=== PATIENT | male | born 2000 | race Caucasian/White ===

== ENCOUNTER 2018-04-07 14:10 | Emergency (ER) | payer OTHER ==
[~2018-04-07] VITALS: Ht 180.3 cm; Wt 114.0 kg
[2018-04-07 14:16] VITALS: TEMP 36.7; Ht 180.3 cm; Wt 114.0 kg
--- NOTE | 2018-04-07 14:54 | EMERGENCY ROOM VISIT NOTE ---
History Report prepared by Tho: Rafal Reza Under the Supervision of: Dr. Zain Augustine M.D. First contact with patient: 14:24 Chief Complaint: NEURO SYMPTOMS Stated Complaint: BLURRY VISON, LOSS OF FEELING IN LT ARM/HEARING RT Nursing Triage Summary: Right eye vision is blurry, having decreased hearing on the right, headache behind the right eye. Symptoms have been going on for about a month and a half. History of Present Illness The patient is a 17 year old white male with a past medical history of puncture wound to his left elbow who presents to the ED with a cc of intermittent blurry vision in the right eye beginning 1.5 months ago. Pt states he constant has a headache behind his right eye, and its intensity affects how blurry his vision is. He reports he is also experiencing left arm and hand numbness. Pt notes he is right handed. He states he tried taking 800mg of ibuprofen for pain, but it did not work. Pt reports he has not had trouble with his previous elbow wound, and it happened 9 years ago. Negative history of chronic medical problems, taking medication, fevers, chills, tick bites, over use of his left arm, wearing contacts or glasses, and seeing an eye doctor. He notes he currently smokes. Source of History: patient Onset: 1.5 months ago Position: eye (right) Quality: other (blurry vision) Timing: intermittent Modifying Factors (Worsening): other (intensity of his headache) Associated Symptoms: + headache, + numbness (left arm and hand), No fevers, No chills Review of Systems See HPI for pertinent positives and negatives. A total of ten systems were reviewed and were otherwise negative. Past Medical & Surgical Medical Problems: (1) Puncture wound of left elbow Family History Patient reports no known family medical history. Social History Smoking Status: Current Every Day Smoker Marital Status: single Housing Status: lives with family Occupation Status: employed Current/Historical Medications No Active Prescriptions or Reported Meds Allergies Coded Allergies: No Known Allergies (Unverified , 04/07/18) Physical Exam Vital Signs Date Time Temp Pulse Resp B/P (MAP) Pulse Ox O2 Delivery O2 Flow Rate FiO2 04/07/18 16:27 79 16 129/69 96 Room Air 04/07/18 15:08 78 16 145/80 97 Room Air 04/07/18 14:16 36.7 98 16 141/87 97 Room Air Physical Exam GENERAL: Awake, alert, well-appearing, NAD HENT: Normocephalic, atraumatic. EOMI. Mild pain with EOM behind the right eye. No proptosis. No double vision. 20/20 vision of the left eye. 20/40 vision of the right eye. EYES: Normal conjunctiva. Sclera non-icteric. PERRL. No anisocoria. NECK: Supple. No nuchal rigidity. FROM. RESPIRATORY: CTAB, no rhonchi, wheezing, crackles CARDIAC: RRR, no MRG ABDOMEN: Soft, NTND, BS+ MSK: No chest wall TTP, no LE edema NEURO: CN 2-12 intact, 5/5 upper and lower extremity strength, no dysmetria, no drift, good finger to nose. Finger count grossly normal. Decreased sensation to the left upper extremity distal to elbow. Decreased pain sensation. Pressure sensation intact. SKIN: No rash or jaundice noted. Medical Decision & Procedures ER Provider Diagnostic Interpretation: Radiology results as stated below per my review and radiologist interpretation: CT SCAN OF THE BRAIN WITHOUT IV CONTRAST CLINICAL HISTORY: Headache. COMPARISON STUDY: No priors. TECHNIQUE: Unenhanced axial CT scan of the brain is performed from the vertex to the skull base. A dose lowering technique was utilized adhering to the principles of ALARA. CT DOSE: 614.27 mGy.cm FINDINGS: Brain parenchyma: The brain parenchyma is normal in appearance. There is no hemorrhage, mass effect, or evidence of acute territorial ischemia by CT criteria. Li-white matter is preserved. No extra-axial fluid collection is seen. Ventricles, sulci, cisterns: Normal in configuration. Intracranial vasculature: The visualized intracranial vasculature at the skull base is normal in appearance. Calvarium: Unremarkable. Sinuses and mastoids: The visualized paranasal sinuses are clear. The mastoid air cells are well pneumatized. Orbits: The bony orbits are grossly intact. IMPRESSION: No acute intracranial abnormality. Electronically signed by: Camilo Guerrero M.D. 04/07/2018 5:03 PM Dictated Date/Time: 04/07/2018 5:01 PM Laboratory Results 04/07/18 14:35 Red Blood Count 5.31, Mean Corpuscular Volume 84.0, Mean Corpuscular Hemoglobin 30.3, Mean Corpuscular Hemoglobin Concent 36.1, Mean Platelet Volume 11.5, Neutrophils (%) (Auto) 49.9, Lymphocytes (%) (Auto) 29.6, Monocytes (%) (Auto) 12.4, Eosinophils (%) (Auto) 7.1, Basophils (%) (Auto) 0.8, Neutrophils # (Auto ) 3.17, Lymphocytes # (Auto) 1.88, Monocytes # (Auto) 0.79, Eosinophils # (Auto ) 0.45, Basophils # (Auto) 0.05 Test 04/07/18 14:35 White Blood Count 6.35 K/uL (4.8-10.8) Red Blood Count 5.31 M/uL (4.7-6.1) Hemoglobin 16.1 g/dL (14.0-18.0) Hematocrit 44.6 % (42-52) Mean Corpuscular Volume 84.0 fL (80-100) Mean Corpuscular Hemoglobin 30.3 pg (25-34) Mean Corpuscular Hemoglobin Concent 36.1 g/dl (32-36) Platelet Count 184 K/uL (130-400) Mean Platelet Volume 11.5 fL (7.4-10.4) Neutrophils (%) (Auto) 49.9 % Lymphocytes (%) (Auto) 29.6 % Monocytes (%) (Auto) 12.4 % Eosinophils (%) (Auto) 7.1 % Basophils (%) (Auto) 0.8 % Neutrophils # (Auto) 3.17 K/uL (1.4-6.5) Lymphocytes # (Auto) 1.88 K/uL (1.2-3.4) Monocytes # (Auto) 0.79 K/uL (0.11-0.59) Eosinophils # (Auto) 0.45 K/uL (0-0.5) Basophils # (Auto) 0.05 K/uL (0-0.2) RDW Standard Deviation 40.2 fL (36.4-46.3) RDW Coefficient of Variation 13.2 % (11.5-14.5) Immature Granulocyte % (Auto) 0.2 % Immature Granulocyte # (Auto) 0.01 K/uL (0.00-0.02) Magnesium Level 1.9 mg/dl (1.8-2.4) Laboratory results reviewed by mi Medications Administered Medications (Trade) Dose Ordered Sig/Manish Route Start Time Stop Time Status Last Admin Dose Admin Prochlorperazine Edisylate (Compazine Inj) 10 mg NOW STAT IV 04/07/18 14:55 04/07/18 14:57 DC 04/07/18 15:12 10 MG Acetaminophen (Tylenol Tab) 1,000 mg NOW STAT PO 04/07/18 14:55 04/07/18 14:57 DC 04/07/18 15:11 1,000 MG Diphenhydramine HCl (Benadryl Inj) 25 mg NOW STAT IV 04/07/18 14:55 04/07/18 14:57 DC 04/07/18 15:12 25 MG ECG Per My Interpretation Indication: other (neurological symptoms) Rate (beats per minute): 82 Rhythm: normal sinus Findings: other (Normal axis. Normal interval. No STS changes or TWI.) ED Course 1441: The patient was evaluated in room C12B. A complete history and physical exam was performed. 1710: I reevaluated the patient. His headache has resolved. Discussed results and discharge instructions: he verbalized understanding and agreement. The patient is ready for discharge. Medical Decision Nursing notes reviewed. Ancillary studies and prior records reviewed. The patient is a 17 year old white male with a past medical history of puncture wound to his left elbow who presents to the ED with a cc of intermittent blurry vision in the right eye beginning 1.5 months ago. Differential diagnosis: Etiologies such as migraine headache, meningitis, sinusitis, CO exposure, ICH, SAH, infection, tumor, headache, sinus thrombosis, arterial dissection, as well as others were entertained. Patient was seen and evaluated the bedside. Patient was complaining of some right eye blurry vision as well as some mild headache located behind the right eye. This been ongoing 1-1-1/2 months. Patient denies any trauma. No history of seizures. Patient is noted blurry vision but no double vision. Patient denies any infectious symptoms. Patient is also noted decreased sensation in the left upper extremity distal to the elbow. On exam this is confirmed as he is not in a specific dermatome but is just distal to the elbow over the medial and lateral aspects of the forearm as well as median, ulnar, and radial nerves of the left hand. He consents pressure but not very much sensation or pain. Patient otherwise has a nonfocal neurologic exam. Patient did have 20/40 vision in the right eye and 20/20 vision in the left. He is no evidence of proptosis EOMI which are fairly painless although he says it does exacerbate his headache. Patient's pain is mildly improved with NSAIDs. Patient did have blood work completed along with a CT of the brain. The patient was given a headache cocktail. Blood work fairly unremarkable. CT the brain was negative. Upon reassessment the patient is feeling improved. I did discuss that do not believe that the patient's peripheral neuropathy is related to stroke. He should follow-up with his PCP for further evaluation treatment and management discussed further outpatient management options. Given the patient has a negative CT with resolution of his headache told me continue [id number] type treatments and should follow up with an hydrotechnical specialist to discuss prescription eyewear as this may be related to that. Medication Reconcilliation Current Medication List: was personally reviewed by me Blood Pressure Screening Patient's blood pressure: Elevated blood pressure Blood pressure disposition: Elevated BP felt to be situational Impression Primary Impression: Blurry vision, right eye Additional Impressions: Headache Encounter for smoking cessation counseling [facility] Scribe Attestation The scribe's documentation has been prepared under my direction and personally reviewed by me in its entirety. I confirm that the note above accurately reflects all work, treatment, procedures, and medical decision making performed by me. Departure Information Dispostion Home / Self-Care Prescriptions No Active Prescriptions or Reported Meds Forms HOME CARE DOCUMENTATION FORM, IMPORTANT VISIT INFORMATION, WORK / SCHOOL INSTRUCTIONS Patient Instructions ED Blurred Vision, My [facility] Additional Instructions Please return to the emergency department if you have worsening or recurrent symptoms not amenable to at-home treatment. Please call for a follow-up appointment with her primary care physician. Please take your medications as prescribed. If you have other concerns and/or complaints please feel free to also call your primary care physician's office or return the ED for further evaluation, management, and treatment. You may take 800 mg Ibuprofen every 6 hours as needed for pain/fever with food unless told by your physician not to take NSAIDs. You may take tylenol 1000 mg every 6 hours as needed for pain/fever unless told by your physician to not take it or have liver problems. You may take motrin and tylenol separately or at the same time. Take your medications as prescribed. Please follow-up with an eye physician or primary care physician to discuss possible contact her prescription lenses. You have been examined and treated today on an emergency basis only. This is not a substitute for, or an effort to provide, complete comprehensive medical care. It is impossible to recognize and treat all injuries or illnesses in a single emergency department visit. It is therefore important that you follow up closely with [facility], your PCP, and/or your specialist(s). Call as soon as possible for an appointment. Thank you for your time and consideration. I look forward to speaking with you again soon. Please don't hesitate to call us if you have any questions. Problem Qualifiers Additional Impressions: Headache Headache type: unspecified Headache chronicity pattern: unspecified pattern Intractability: not intractable Qualified Codes: R51 - Headache Nearsightedness Laterality: right Qualified Codes: H52.11 - Myopia, right eye
[2018-04-07] MEDS ORDERED: ACETAMINOPHEN 500 MG TAB PO STA (14:55)
[2018-04-07] MEDS ORDERED: PROCHLORPERAZINE 5 MG/ML 2 ML VIAL IV STA (14:55)
[2018-04-07] MEDS ORDERED: DiphenhydrAMINE HCL 50 MG/ML VIAL IV STA (14:55)
[2018-04-07 15:52] LABS: BASO % 0.8 %; BASO ABS # 0.05 K/uL (0-0.2); EOS % 7.1 %; EOS ABS # 0.45 K/uL (0-0.5); HEMATOCRIT 44.6 % (42-52); HEMOGLOBIN 16.1 g/dL (14.0-18.0); IG# 0.01 K/uL (0.00-0.02); LYMPH % 29.6 %; LYMPH ABS # 1.88 K/uL (1.2-3.4); MEAN CORPUSCULAR HEMOGLOBIN 30.3 pg (25-34); MEAN CORPUSCULAR HGB CONC 36.1 g/dl (32-36); MEAN PLATELET VOLUME 11.5 fL (7.4-10.4); MONO % 12.4 %; MONO ABS # 0.79 K/uL (0.11-0.59); NEUT % 49.9 %; NEUT ABS # 3.17 K/uL (1.4-6.5); PLATELET COUNT 184 K/uL (130-400); RED CELL DISTRIBUTION WIDTH CV 13.2 % (11.5-14.5); RED CELL DISTRIBUTION WIDTH SD 40.2 fL (36.4-46.3); WHITE BLOOD COUNT 6.35 K/uL (4.8-10.8)
--- NOTE | 2018-04-07 17:04 | DIAGNOSTIC IMAGING REPORT ---
CT SCAN OF THE BRAIN WITHOUT IV CONTRAST CLINICAL HISTORY: Headache. COMPARISON STUDY: No priors. TECHNIQUE: Unenhanced axial CT scan of the brain is performed from the vertex to the skull base. A dose lowering technique was utilized adhering to the principles of ALARA. CT DOSE: 614.27 mGy.cm FINDINGS: Brain parenchyma: The brain parenchyma is normal in appearance. There is no hemorrhage, mass effect, or evidence of acute territorial ischemia by CT criteria. Li-white matter is preserved. No extra-axial fluid collection is seen. Ventricles, sulci, cisterns: Normal in configuration. Intracranial vasculature: The visualized intracranial vasculature at the skull base is normal in appearance. Calvarium: Unremarkable. Sinuses and mastoids: The visualized paranasal sinuses are clear. The mastoid air cells are well pneumatized. Orbits: The bony orbits are grossly intact. IMPRESSION: No acute intracranial abnormality. Electronically signed by: Camilo Guerrero M.D. 04/07/2018 5:03 PM Dictated Date/Time: 04/07/2018 5:01 PM
[2018-04-07 17:59] VITALS: BP 129/82; PULSE 80; O2SAT 100
[2018-04-07 18:36] LABS: CALCIUM 8.9 mg/dl (8.5-10.1); CREATININE 1.07 mg/dl (0.60-1.40); POTASSIUM 3.7 mmol/L (3.5-5.1)
== END 2018-04-07 17:35 | disposition home or self-care (01) ==
LOC: C.EDB 14:13 → C.EDC 17:35
DX: H53.8 Other visual disturbances (principal); R51 Headache; H52.12 Myopia, left eye; R20.0 Anesthesia of skin; F17.200 Nicotine dependence, unspecified, uncomplicated